=== PATIENT | female | born 1995 | race Hispanic/Latino ===

== ENCOUNTER 2024-12-12 14:22 | Inpatient (IN) | payer OTHER, SELFPAY ==
[2024-12-12] VITALS (15 sets, daily range): BP systolic 149–179; BP diastolic 96–124; BMI 18.3; BMI 18.0
--- NOTE | 2024-12-12 10:38 | ED.GENMED ---
History of Present Illness
General
Chief Complaint: Withdrawal Symptoms
Source: patient
Exam Limitations: none
Time Seen by Provider: 12/12/24 10:27
History of Present Illness
History of Present Illness:
29-year-old female presents from [facility] with complaints of vomiting chest and back pain. She was arrested yesterday. She is used to smoking 2 bundles of cocaine and fentanyl daily. She states she may be withdrawing.
She was given clonidine Tylenol and Zofran at the facility without relief. Patient a limited historian and only answer some of the questions. States she is homeless. No other complaints at this time. She denies alcohol use
Phy Exam
Physical Exam
Physical Exam:
General: Well-developed female no acute respiratory distress
HEENT: Normocephalic mucosa dry feels equal round reactive to light
Heart: Tachycardic but regular
Lungs: Clear no wheeze
Extremities: No cyanosis or edema
Skin warm no rash
Course
Orders/Labs/Results
Orders:
Orders
12/12/24 10:27
EKG [Electrocardiogram (*1)] Urgent
Reason for Study: Tachycardia
EKG- Treatment ONCE
12/12/24 10:36
0.9% Sodium Chloride 1000 ml [Nss] 1,000 ml IV BOLUS
Test Result ONCE
12/12/24 10:39
Complete Blood Count/With Diff Urgent
Comprehensive Metabolic Panel Urgent
HCG, Serum Qualitative Screen Urgent
Troponin I Urgent
12/12/24 10:40
CR Chest Portable - 1 View Urgent
Comment:
Reason For Exam: chest pain
Reason Study Needs to be Portable: Patient Unstable
12/12/24 11:01
Ondansetron Injectable [Zofran] 4 mg IV NOW STA
12/12/24 11:35
Aspirin 325 mg PO NOW STA
Abnormal Lab Results
12/12/24
10:39
WBC 24.0 H 10^3/uL
(4.8-10.8)
RBC 6.18 H 10^6/uL
(4.20-5.40)
Hgb 18.3 H g/dL
(12.0-16.0)
Hct 54.4 H %
(37.0-47.0)
Abs Immat Gran (auto) 0.2 H 10^3/uL
(0-0.05)
Absolute Neuts (auto) 19.0 H 10^3/uL
(1.4-6.5)
Absolute Lymphs (auto) 3.8 H 10^3/uL
(1.2-3.4)
Absolute Monos (auto) 1.0 H 10^3/uL
(0.1-0.6)
Immature Gran % 0.7 H %
(0-0.5)
Neutrophils % 79.3 H %
(42.2-75.2)
Lymphocytes % 15.7 L %
(20.5-51.1)
BUN 26 H mg/dl
(7-17)
Creatinine 1.1 H mg/dL
(0.6-1.0)
Glucose 178 H mg/dl
(70-99)
Troponin I 0.333 H* ng/ml
12/12/24 10:39
12/12/24 10:39
Vital Signs
Initial and Last Documented VS:
Initial Vital Signs
Temp Pulse Resp BP Pulse Ox
99.1 F 128 26 159/118 96
12/12/24 10:28 12/12/24 10:28 12/12/24 10:28 12/12/24 10:28 12/12/24 10:28
Last Documented Vital Signs
Temp Pulse Resp BP Pulse Ox
98.5 F 115 25 159/118 96
12/12/24 10:51 12/12/24 10:28 12/12/24 10:28 12/12/24 10:28 12/12/24 10:40
MDM/Problems Addressed
Differential Diagnosis Includes:
Patient with vomiting and chest pain since being incarcerated yesterday. Prior to that she was smoking 2 bundles of cocaine and fentanyl daily.
Differential could include withdrawal from fentanyl chest pain from cocaine use versus AL
EKG troponin labs pending. Will hydrate.
*Pulse Oximetry
SaO2: 96
Oxygen Mode of Delivery: Room air
Patient hypoxic: no
*Critical Care Note
Total Time (30-74mins, 75-104mins- exclusive of procedures): Not Applicable
Update Note
Update Note:
EKG shows sinus tachycardia with a rate of 129 no ischemic changes
Troponin is elevated at 0.333. Patient required Zofran here for her nausea and vomiting. Aspirin ordered for chest pain and elevated troponin. Troponin possibly elevated secondary to recent cocaine use will admit to hospital for further trending
of troponin and evaluation. Discussed with the emergency room attending
ED Attending Note
-
Portions of this chart may have been created with voice recognition software.� Occasional wrong word or��sound alike� substitutions may have occurred due to the inherent limitations of voice recognition software.
Discharge Plan
Departure
Patient Disposition: Admit
Date of Disposition: 12/12/24
Time of Disposition: 11:45
Presentation/result/management discussed w/ accepting MD/DO: Hospitalist
Discharge Problem:
Chest pain, Elevated troponin
Prescriptions:
No Action
clonidine HCl 0.1 mg Tablet
0.1 mg PO DIRECTED
Rx Instructions:
take 0.1mg tid until 12/14/24 then 12/15/24 take 0.1mg bid until 12/16/24 then on 12/17/24 take half a tablet bid until 12/18/24
ondansetron HCl [Zofran] 4 mg Tablet
4 mg PO TIDPRN PRN (Reason: nausea)
loperamide 2 mg Tablet
2 mg PO TIDPRN PRN (Reason: diarrhea)
acetaminophen-codeine 300-30 mg Tablet
1 tab PO DIRECTED
Rx Instructions:
take 2 tablet tid until 12/14/24 then on 12/15/24 take 2 tablet bid until 12/16/24 then on 12/17/24 1 tablet bid until 12/18/24 then on 12/19/24 1 tablet hs
Referrals:
[facility] [Family Provider, General]
Interventions
Interventions:
*Risk Screen - Suicide Last Done: 12/12/24 10:28
*General Assessment Last Done: 12/12/24 10:28
*Neglect/Abuse Screening Last Done: 12/12/24 10:28
Discharge Date and Time
Print Language: AZERI
[2024-12-12] MEDS: NSS 1000 IV ×2 (10:41→14:38)
[2024-12-12] MEDS: ZOFRAN 4 MG IV ×2 (11:05→22:05)
[2024-12-12 11:22] LABS: HCG, Serum Qualitative Screen Negative
[2024-12-12 11:23] LABS: % Basophils 0.2 % (0-2); % Immature Granulocytes 0.7 % (0-0.5); % Lymphocytes 15.7 % (20.5-51.1); % Monocytes 4.1 % (1.7-9.3); % Neutrophils 79.3 % (42.2-75.2); Absolute Basophils 0.1 10^3/uL (0-0.2); Absolute Immature Granulocytes 0.2 10^3/uL (0-0.05); Absolute Lymphocytes 3.8 10^3/uL (1.2-3.4); Hematocrit 54.4 % (37.0-47.0); Hemoglobin 18.3 g/dL (12.0-16.0); Mean Corp Hgb Conc. 33.6 g/dL (33.0-37.0); Mean Corpuscular Hgb 29.6 pg (27.0-31.0); Mean Platelet Volume 8.6 fL (7.4-10.4); Nucleated Red Blood Cells % 0 %; Platelet Count 390 10^3/uL (130-400); Red Blood Cell Count 6.18 10^6/uL (4.20-5.40)
[2024-12-12 11:31] LABS: ALT (SGPT) 12 U/L (0-35); AST (SGOT) 20 U/L (14-36); Albumin 4.1 g/dl (3.5-5.0); Alkaline Phosphatase 91 U/L (38-126); Blood Urea Nitrogen 26 mg/dl (7-17); Calcium 10.1 mg/dl (8.4-10.2); Carbon Dioxide 25 mmol/L (22-30); Chloride 103 mmol/L (98-107); Estimated Creatinine Clearance 60 ml/min; Glucose 178 mg/dl (70-99); Potassium 4.1 mmol/L (3.5-5.1); Sodium 136 mmol/L (135-145); Total Bilirubin 0.5 mg/dl (0.2-1.3); eGFR > 60.00
[2024-12-12 11:32] LABS: Troponin I 0.333 ng/ml
[2024-12-12] MEDS: ASPIRIN 325 MG PO (11:49)
--- NOTE | 2024-12-12 13:59 | HPS.HSE ---
Addendum entered and electronically signed by Rian Perez MD 12/12/24 14:56:
Discussed with pharmacy, will start Microdosing protocol
Original Note:
Family Physician
-
Family Physician: Facility [facility]
Chief Complaint
-
Chest pain, back pain
History of Present Illness
29-year-old female with history of drug use came from [facility] facility with nausea/vomiting along with chest and back pain. Per staff at bedside patient was arrested yesterday. Per staff when patient came yesterday, she
appeared to be withdrawing which continue to get worse. Patient does cocaine and fentanyl. At the facility clonidine Tylenol and Zofran was tried without any relief. Patient is also poor historian and does not answer all the questions. Currently
she denies any shortness of breath. Denies any alcohol use.
Medical History
Past Medical History
Past Medical History: Reports Other (drug use)
Past Surgical History: Reports None
Social History
Unable to obtain full social history at this time due to: Other
Tobacco: Non-smoker
Alcohol: None
Drug: Cocaine
Family History
Family History: Not pertinent
Allergies / Home Medications
Allergies reflects when Allergies were last updated in [employer].
Home Medications with original date entered in [employer]
Allergy/Medication List:
Allergies
Allergy/AdvReac Type Severity Reaction Status Date / Time
No Known Allergies Allergy Unverified 12/12/24 10:25
Home Medications
acetaminophen 300 mg-codeine 30 mg tablet 1 tab PO DIRECTED 12/12/24
clonidine HCl 0.1 mg tablet 0.1 mg PO DIRECTED 12/12/24
loperamide 2 mg tablet 2 mg PO TIDPRN PRN diarrhea 12/12/24
ondansetron HCl 4 mg tablet 4 mg PO TIDPRN PRN nausea 12/12/24
Review of Systems
-
Unable to obtain full review of systems at this time due to: Acuity
History Source: Patient
A 12 point ROS was completed and negative except as noted: Yes
Cardiac: Reports Chest Pain
Abdomen/GI: Reports Nausea and Vomiting
Physical Exam
Vital Signs
Vital Signs
Temp Pulse Resp BP Pulse Ox
98.6 F 141 19 150/107 99
12/12/24 12:00 12/12/24 12:33 12/12/24 12:33 12/12/24 12:33 12/12/24 11:00
Physical Exam
General: Appears in Distress and Pain
HEENT: Anicteric and Moist mucous membranes
Respiratory: Clear; No Wheezes
Cardiac: S1/S2, Regular Rhythm and Tachycardia
Breast: Deferred by me
GI: Soft, Non Distended and Tender
Rectal: Deferred by Provider
Genito-urinary: Deferred by me
Musculoskeletal: No Edema
Neuro: Awake
Psych: Agitated
Laboratory Results
-
12/12/24 10:39
12/12/24 10:39
Laboratory Results
Total Bilirubin 0.5 mg/dl (0.2-1.3) 12/12/24 10:39
AST 20 U/L (14-36) 12/12/24 10:39
ALT 12 U/L (0-35) 12/12/24 10:39
Alkaline Phosphatase 91 U/L (38-126) 12/12/24 10:39
Troponin I 0.333 ng/ml H* 12/12/24 10:39
Data Reviewed
-
Lab Data: Labs Reviewed by me and Discussed with Patient
Impression/Plan
-
Chest pain, could be secondary to cocaine induced vasospasm
Trend troponin, aspirin for now
If troponin continues to rise then start IV heparin
Cardiology evaluation
Check echo
EKG with sinus tach with occasional PVC
Suspect severe opioid withdrawal
Start Subutex
Clonidine as needed
COWS protocol
N/V suspect 2/2 withdrawal
antiemetics
clears for now
Renal insufficiency, unknown baseline
Continue to monitor
Leukocytosis and elevated hemoglobin suspect likely secondary to dehydration
Continue to monitor
Denies any fever/chills
SIRS (leukocytosis, tachycardia, tachypnea)
check bcx
monitor off abx for now
if spike fever then start abx
DVTppx
SCD's, lovenox
Full code
I spent a total of 77 minutes with the patient or on the floor. More than 50% of this time involved counseling and coordination of care.
--- NOTE | 2024-12-12 14:13 | CM ---
Received consult, reviewed chart. Pt will return to [facility] upon discharge. CM will continue to follow.
[2024-12-12] MEDS: CATAPRES 0.1 MG PO ×4 (14:38→23:36)
--- NOTE | 2024-12-12 15:09 | CON.CAR ---
Addendum entered and electronically signed by Robert Hoang MD 12/12/24 16:06:
I saw and examined the patient.
The MATERIAL EXPEDITER's note was reviewed and I agree with the note.
Comment: 29 y/o female with fentanyl and cocaine use who is in [facility] after recent arrest (yesterday per chart) is here for evaluation of nausea, vomiting, and chest and back pain. We are consulted since troponin is 0.333.
Her troponin is most consistent with non-ischemic myocardial injury given drug use, HTN, tachycardia, and withdrawal symptoms.
Treat underlying cause.
Plan for possible outpatient stress test once discharged.
Troponin peaked at 0.33.
Original Note:
Consultation
Consultation Request
Date/Time Consultation Requested: 12/12/24 [id number]
Date/Time Consultation Performed: 12/12/24 [id number]
Requesting Provider: Dr. Perez
Performing Provider: Savannah VILLEDA for Dr. Hoang
Reason for Consultation: Chest pain, abnormal troponin
Medical History
-
Chief Complaint: nausea, vomiting, chest/back discomfort
History of Present Illness:
29 y/o female with fentanyl and cocaine use who is in [facility] after recent arrest (yesterday per chart) is here for evaluation of nausea, vomiting, and chest and back pain. We are consulted since troponin is 0.333. She
reports continued chest pain. There was some vomiting on arrival to the IMU. Overall, she does not seem to be a reliable historian at this time and is only answering some questions. She is in no distress at the time of my assessment.
Past Medical History
Past Medical History: Other (as above)
Social History
Drug: Cocaine and Other (fentanyl)
Living: Senior Living
Family History
Family History: Reviewed & Not Pertinent
Allergies / Home Medications
Allergy/AdvReac Type Severity Reaction Status Date / Time
No Known Allergies Allergy Unverified 12/12/24 10:25
�Medication �Instructions �Recorded �Confirmed �Type
acetaminophen 300 mg-codeine 30 mg 1 tab PO DIRECTED 12/12/24 12/12/24 History
tablet
clonidine HCl 0.1 mg tablet 0.1 mg PO DIRECTED 12/12/24 12/12/24 History
loperamide 2 mg tablet 2 mg PO TIDPRN PRN diarrhea 12/12/24 12/12/24 History
ondansetron HCl 4 mg tablet 4 mg PO TIDPRN PRN nausea 12/12/24 12/12/24 History
Review of Systems
-
History Source: Patient and Other (and chart)
Cardiac: Chest Pain
Abdomen/GI: Nausea and Vomiting
Musculoskeletal: Other (back pain)
Physical Exam
Vital Signs
Temp Pulse Resp BP Pulse Ox
98.6 F 141 19 150/107 99
12/12/24 12:00 12/12/24 12:33 12/12/24 12:33 12/12/24 12:33 12/12/24 11:00
Lab Results
12/12/24 10:39
12/12/24 10:39
Troponin I 0.333 ng/ml H* 12/12/24 10:39
Physical Exam
General: No Apparent Distress
Respiratory: Clear and Non Labored Respirations
Cardiac: Regular Rhythm (tachycardia)
Neuro: Awake, Alert and Other (answering some questions, shutting eyes and being silent to other questions)
Impression / Plan
-
Abnormal troponin:
-ASA administered in ER
-suspect acute, non-ischemic myocardial injury in setting of drug use/withdrawal, elevated BP's, tachycardia
-0.333, and trending down. Obtain echo (prelim EF normal). Repeat EKG in AM.
Chest, back pain, nausea, vomiting:
-likely associated with withdrawal- HR and BP elevated as well in this setting- meds being given per protocol
Drug abuse:
-being treated for withdrawal per primary team
-should have counseling on cessation options prior to d/c
Leukocytosis:
-blood cx are pending
-w/u per primary
Data Reviewed
-
EKG: Tracing Personally Visualized and interpreted (ST 129 BPM)
Radiology: Report Reviewed by me (CXR: no acute disease of chest)
Medical Tests (Nuc Med, Echo etc): Other (echo is ordered)
Labs: Labs Reviewed by me
[2024-12-12 15:10] LABS: Alcohol None Detected
[2024-12-12 15:21] LABS: Troponin I 0.315 ng/ml
[2024-12-12] MEDS: BELBUCA 300 MCG BUCCAL ×3 (15:44→23:37)
[2024-12-12] MEDS: OXYCONTIN (CONTROLLED RELEASE) 40 MG PO ×2 (15:44→23:37)
--- NOTE | 2024-12-12 16:47 | PTCARENOTE ---
recieved pt from ED. upon arrival to floor pt vomited small amount bilious fluid. heart rate 140, pt flushed and diaphoretic. 4 pm doses of buprenorphine and oxycodone given at that time. pt seen by cardiology for c/o chest pain. repeat troponin
trending down and order for heparin drip discontinued. pt not copperative in answering admission questions and is withdrawn. COWS score of 18. iv fluids infusing. pt currently sleeping but awakens easily. heart rate down to 110. pulse ox 98 on room
air. as pt is forensic pt gaurds are at bedside.
[2024-12-12] MEDS: LOVENOX 40 MG SC (17:38)
[2024-12-13] VITALS (22 sets, daily range): BP systolic 142–176; BP diastolic 90–121; BMI 17.8
[2024-12-13] MEDS: BELBUCA 300 MCG BUCCAL ×3 (04:09→12:30)
[2024-12-13] MEDS: NSS 1000 IV ×3 (04:09→22:27)
[2024-12-13 04:52] LABS: % Basophils 0.2 % (0-2); % Immature Granulocytes 0.5 % (0-0.5); % Lymphocytes 17.3 % (20.5-51.1); % Monocytes 4.8 % (1.7-9.3); % Neutrophils 77.2 % (42.2-75.2); Absolute Immature Granulocytes 0.1 10^3/uL (0-0.05); Absolute Lymphocytes 3.2 10^3/uL (1.2-3.4); Absolute Monocytes 0.9 10^3/uL (0.1-0.6); Absolute Neutrophils 14.2 10^3/uL (1.4-6.5); Hematocrit 43.8 % (37.0-47.0); Hemoglobin 14.9 g/dL (12.0-16.0); Mean Corpuscular Hgb 29.8 pg (27.0-31.0); Mean Corpuscular Volume 87.6 fL (81.0-99.0); Mean Platelet Volume 8.2 fL (7.4-10.4); Nucleated Red Blood Cells % 0 %; Platelet Count 284 10^3/uL (130-400); White Blood Cell Count 18.4 10^3/uL (4.8-10.8)
[2024-12-13 05:00] LABS: Urine Albumin 2+ (Neg - Trace); Urine Bilirubin Negative (Negative); Urine Character Cloudy (Clear); Urine Color Amber; Urine Glucose Negative (Negative); Urine Ketone 3+ (Negative); Urine Leukocyte 3+ (Negative); Urine Nitrite Positive (Negative); Urine Occult Blood 2+ (Negative); Urine Urobilinogen Negative (Neg - 1+)
[2024-12-13 05:03] LABS: Amphetamines Negative (Negative); Barbiturates Negative (Negative); Benzodiazepines Negative (Negative); Buprenorphine Positive (Negative); Cocaine Positive (Negative); Marijuana Negative (Negative); Methadone Negative (Negative); Methamphetamines Positive (Negative); Opiates Negative (Negative); Phencyclidine Negative (Negative); Tricyclic Antidepressants Negative (Negative)
[2024-12-13 05:21] LABS: Fentanyl, Urine Positive (Negative)
[2024-12-13 05:32] LABS: ALT (SGPT) < 10 U/L (0-35); AST (SGOT) 19 U/L (14-36); Albumin 3.6 g/dl (3.5-5.0); Alkaline Phosphatase 67 U/L (38-126); Blood Urea Nitrogen 24 mg/dl (7-17); Calcium 8.6 mg/dl (8.4-10.2); Carbon Dioxide 23 mmol/L (22-30); Chloride 109 mmol/L (98-107); Direct Bilirubin 0.2 mg/dl (0.0-0.4); Estimated Creatinine Clearance 107 ml/min; Glucose 86 mg/dl (70-99); Potassium 4.2 mmol/L (3.5-5.1); Sodium 137 mmol/L (135-145); Total Bilirubin 0.6 mg/dl (0.2-1.3); Total Protein 6.2 g/dl (6.3-8.2); eGFR > 60.00
[2024-12-13 05:35] LABS: Urine Bacteria Many (Negative); Urine White Cell 16-20 /HPF (0-5)
--- NOTE | 2024-12-13 06:04 | PTCARENOTE ---
Cared for pt overnight. Bp's running high overnight, FL[employer]OR aware, order to give PRN clonidine. Bp's still running high, orders to monitor for now since pt is asymptomatic.
pt drowsy and withdrawn. COWS completed. ST on monitor. remains RA. Denies pain.
[2024-12-13] MEDS: OXYCONTIN (CONTROLLED RELEASE) 40 MG PO ×2 (07:24→16:50)
[2024-12-13] MEDS: ZOFRAN 4 MG IV (07:25)
[2024-12-13] MEDS: LOW STRENGTH ASPIRIN 81 MG PO (07:25)
[2024-12-13] MEDS: CATAPRES 0.1 MG PO ×3 (07:25→21:28)
--- NOTE | 2024-12-13 10:55 | CM ---
Notified [facility] via phone; made aware that medical consultation report was faxed to #[phone]
--- NOTE | 2024-12-13 11:50 | W.PN.CD ---
Today's Communication / Plan
-
Consider nifedipine for HTN most likely will improve with improvement of withdrawal
Outpt workup for elevated trop ie exercise nuc
We will arrange outpt follow up. please call with questions.
Impression / Plan
-
Abnormal troponin:
-ASA administered in ER
-suspect acute, non-ischemic myocardial injury in setting of drug use/withdrawal, elevated BP's, tachycardia
-0.333, and trending down.
- echo below
- can have outpt workup
Chest, back pain, nausea, vomiting:
-likely associated with withdrawal- HR and BP elevated as well in this setting- meds being given per protocol
Drug abuse:
-being treated for withdrawal per primary team
-should have counseling on cessation options prior to d/c
Leukocytosis:
-blood cx are pending
-w/u per primary
Subjective: minimally interactive this AM
Physical Exam
Vital Signs/Labs
Vital Signs
Temp Pulse Resp BP Pulse Ox
99.1 F 90 19 156/103 98
12/13/24 07:30 12/13/24 08:00 12/13/24 08:00 12/13/24 08:00 12/13/24 08:20
12/12/24 12/13/24 12/14/24
06:59 06:59 06:59
Actual Weight 110 lb 7.225 oz
12/13/24 04:20
12/13/24 04:20
APTT Cancelled 12/12/24 15:41
LAB Results
12/12/24 12/12/24 12/12/24
10:39 14:32 18:30
Troponin I 0.333 H* 0.315 H* Cancelled
12/12/24
22:30
Troponin I Cancelled
Physical Exam
Constitutional: No acute distress and Other (tired)
EENT: Anicteric
Cardiovascular: Rhythm & rate is regular and Pedal edema is absent
Respiratory: Respiratory effort normal and Lungs clear to auscul.
GI: Soft
Neuro/Psych: Alert and Oriented
Data Reviewed
-
Date of Service: December 13, 2024
EKG: Tracing Personally Visualized and interpreted (sr)
Echo: Tracing Personally Visualized and interpreted and Report Reviewed by me
Labs: Labs Reviewed by me
--- NOTE | 2024-12-13 13:18 | W.PN.HOSP.TC ---
Today's Communication/Plan
-
Monitor vital signs see plan
Continue with micro dosing protocol
Monitor mental status
Start ceftriaxone for now
Follow cultures
Started nifedipine
Assessment / Plan
Assessment / Plan
General: Appears in Distress and Pain
HEENT: Anicteric and Moist mucous membranes
Respiratory: Clear; No Wheezes
Cardiac: S1/S2, Regular Rhythm and Tachycardia
GI: Soft, Non Distended and Tender
Musculoskeletal: No Edema
Neuro: Awake
Psych: calm
Chest pain, suspect nonischemic myocardial injury
Troponin ordered, continue with aspirin
Cardiology following, discussed with cardiology and they will follow-up with patient outpatient for stress test
Echo 12/12 with preserved EF
EKG with sinus tach with occasional PVC
Suspect severe opioid withdrawal
Continue with micro dosing protocol
Clonidine as needed instead
COWS protocol
Severely hypertensive, start nifedipine
N/V suspect 2/2 withdrawal
antiemetics
clears for now
Renal insufficiency, unknown baseline
Continue to monitor, resolved
Leukocytosis and elevated hemoglobin suspect likely secondary to dehydration
Continue to monitor
Denies any fever/chills
SIRS (leukocytosis, tachycardia, tachypnea)
check bcx pending
monitor off abx for now
if spike fever then start abx
ua noted; could also be a bad sample however given her symptoms we will treat for UTI for now pending urine culture
DVTppx
SCD's, lovenox
Full code
I spent a total of 52 minutes with the patient or on the floor. More than 50% of this time involved counseling and coordination of care.
Anticipated Discharge: > 48 hours
Subjective/Interval History
-
Date of Service: December 13, 2024
no nausea
Objective Data
-
Labs:
Laboratory Results
12/13/24
04:20
WBC 18.4 H
Hgb 14.9
Hct 43.8
Plt Count 284 D
Sodium 137
Potassium 4.2
Chloride 109 H
Carbon Dioxide 23
BUN 24 H
Creatinine 0.5 L
Glucose 86
Calcium 8.6 D
Total Bilirubin 0.6
AST 19
ALT < 10
Alkaline Phosphatase 67
Vital Signs:
Vital Signs
Temp Pulse Resp BP Pulse Ox
99.0 F 90 19 156/103 98
12/13/24 11:30 12/13/24 08:00 12/13/24 08:00 12/13/24 08:00 12/13/24 08:20
--- NOTE | 2024-12-13 13:47 | PN.CDI ---
CDI
- -
CDI:
Physician Documentation Request
Admit Date: 12/12/24 14:22
Dear Doctor Chris,
Please review the following and provide your response in the progress notes.
Clinical Indicators:
Height: 5 ft 6 in
Weight:110lb 7.2 oz
BMI:17.8
Other Clinical Notes: Nutrition consult 12/13@ 1152,' BMI 17.8 (underweight)...'
If possible, please provide an associated diagnosis related to the abnormal BMI, such as:
BMI < or = to 19
Underweight
Cachectic
- Other
Use of terms such as suspected, likely, concern for, or probable (associated with a specific diagnosis that is being evaluated, monitored, or treated as if it exists) are acceptable and can be coded in the inpatient setting, when documented at the
time of discharge.
Thank you,
Alecia Austin RN
CDI Specialist
[place] [facility]
Please use your independent medical judgment in providing your response.
--- NOTE | 2024-12-13 13:50 | PN.CDI ---
CDI
- -
CDI:
Physician Documentation Request
Admit Date: 12/12/24 14:22
Dear Doctor Chris,
Please review the following and provide your response in the progress notes.
Clinical Indicators:
Pt admitted with Opioid withdrawal
Documented per H&P,' N/V suspect 2/2 withdrawal...Renal insufficiency, unknown baseline Continue to monitor..'
Renal Functions as below /Pt did get IVFs
Laboratory Tests
12/12/24 12/13/24
10:39 04:20
Creatinine 1.1 H 0.5 L
Clarify which of the following accurately represents the patient's renal status:
GUILHERME
Abnormal creatinine only
Other ( please specify)
Criteria for GUILHERME*
1 Increase in serum creatinine by > or = to 0.3 mg/dL (> or = to 26.5 micromol/L) within 48 hours, OR
2 Increase in serum creatinine to > or = to 1.5 times baseline, which is known or presumed to have occurred within 7 days, OR
3 Urine volume < 0.5 nL/kg/hour for six hours
Use of terms such as suspected, likely, concern for, or probable (associated with a specific diagnosis that is being evaluated, monitored, or treated as if it exists) are acceptable and can be coded in the inpatient setting, when documented at the
time of discharge.
Thank you,
Alecia Austin RN
CDI Specialist
[place] [facility]
Please use your independent medical judgment in providing your response.
*Source: Kidney Disease: Improving Global Outcomes (KDIGO) 2012
[2024-12-13] MEDS: STERILE WATER FOR INJECTION 10 ML IV (15:00)
[2024-12-13] MEDS: ROCEPHIN 1000 MG IV (15:00)
[2024-12-13] MEDS: PROCARDIA XL (EXTENDED RELEASE) 30 MG PO (15:01)
[2024-12-13] MEDS: LOVENOX SC (16:50)
[2024-12-13] MEDS: SUBUTEX 2 MG SL ×2 (17:22→21:29)
--- NOTE | 2024-12-13 17:44 | PTCARENOTE ---
See nursing flowsheet. pt cow scores not requiring prn meds this shift. pt reports less nausea as day goes on and has not vomited. sinus rythym to sinus tachy on monitor. bps continue to be elevated. procardia adminuistered per order. iv rocephin
given per order. pts urine is vladislav and foul smelling.pt is no longer in custody of [facility] per denita and denita no longer in pts room. bed alarm on. iv fluids infusing. appetite is poor.
--- NOTE | 2024-12-13 19:30 | PTCARENOTE ---
pt is drowsy, but arousable. will wake up and go straight back to sleep. 96-98% on room air. RR=15-25, HR 100-120's. Pt cows =4. Pt states she 'is tired and too weak' to do anything. pt is sleeping w/ call brandt in reach.
[2024-12-13] MEDS: OXYCONTIN (CONTROLLED RELEASE) PO (23:25)
[2024-12-14] VITALS (11 sets, daily range): BP systolic 119–157; BP diastolic 87–108; BMI 17.8
[2024-12-14 04:40] LABS: % Basophils 0.3 % (0-2); % Eosinophils 0.2 % (0-6); % Immature Granulocytes 0.4 % (0-0.5); % Lymphocytes 25.2 % (20.5-51.1); % Neutrophils 66.9 % (42.2-75.2); Absolute Lymphocytes 2.9 10^3/uL (1.2-3.4); Absolute Monocytes 0.8 10^3/uL (0.1-0.6); Absolute Neutrophils 7.6 10^3/uL (1.4-6.5); Hematocrit 41.8 % (37.0-47.0); Hemoglobin 13.9 g/dL (12.0-16.0); Mean Corp Hgb Conc. 33.3 g/dL (33.0-37.0); Mean Corpuscular Hgb 29.8 pg (27.0-31.0); Mean Corpuscular Volume 89.7 fL (81.0-99.0); Mean Platelet Volume 8.2 fL (7.4-10.4); Nucleated Red Blood Cells % 0 %; Platelet Count 222 10^3/uL (130-400); Red Blood Cell Count 4.66 10^6/uL (4.20-5.40); Red Cell Dist. Width 12.9 % (11.5-14.5); White Blood Cell Count 11.4 10^3/uL (4.8-10.8)
[2024-12-14 05:03] LABS: ALT (SGPT) 10 U/L (0-35); AST (SGOT) 19 U/L (14-36); Albumin 3.6 g/dl (3.5-5.0); Alkaline Phosphatase 66 U/L (38-126); Blood Urea Nitrogen 8 mg/dl (7-17); Calcium 8.7 mg/dl (8.4-10.2); Carbon Dioxide 25 mmol/L (22-30); Chloride 109 mmol/L (98-107); Estimated Creatinine Clearance 107 ml/min; Glucose 99 mg/dl (70-99); Potassium 3.9 mmol/L (3.5-5.1); Sodium 138 mmol/L (135-145); Total Bilirubin 0.7 mg/dl (0.2-1.3); Total Protein 6.2 g/dl (6.3-8.2); eGFR > 60.00
[2024-12-14] MEDS: NSS 1000 IV ×2 (07:59→20:34)
[2024-12-14] MEDS: SUBUTEX 2 MG SL ×2 (08:24→13:04)
[2024-12-14] MEDS: LOW STRENGTH ASPIRIN 81 MG PO (08:25)
[2024-12-14] MEDS: CATAPRES 0.1 MG PO ×3 (08:25→20:37)
[2024-12-14] MEDS: OXYCONTIN (CONTROLLED RELEASE) PO (08:32)
[2024-12-14] MEDS: PROCARDIA XL (EXTENDED RELEASE) 30 MG PO (08:32)
--- NOTE | 2024-12-14 09:31 | PTCARENOTE ---
Addendum entered by Marcus Pantoja RN 12/14/24 17:02:
Patient removed wires and unscrewed IV fluids then set off bed alarm and ran to bathroom while demanding to leave. Took shower despite instructions not to. Patient steady on her feet. Patient initially wanting to leave AMA but after discussion, she
decided to stay. CM notified that patient homeless, stays in [place] [facility] and was released by [facility] yesterday and will require assistance upon discharge. CM met with patient. See CM note for update. Patient back on tele monitor and IV fluids
and agreeable to stay. VSS. aware. Will closely monitor.
Original Note:
Patient with no complaints. States feeling better, no nausea. COWS score currently 1. VSS. NSR on monitor. RA, 98%. Patient tolerating CLD. Reports weakness. Patient drowsy but arousable, resting in bed. NSS infusing at 80ml/hr. Bed alarm on for
safety. Will closely monitor.
--- NOTE | 2024-12-14 12:32 | W.PN.HOSP.TC ---
Addendum entered and electronically signed by Rian Perez MD 12/14/24 12:38:
GUILHERME
Underweight
Original Note:
Today's Communication/Plan
-
Monitor vital signs see plan
Monitor closely for withdrawal
Continue with withdrawal protocol
Advance diet to full's
Continue with nifedipine, clonidine
Assessment / Plan
Assessment / Plan
General: Appears in Distress and Pain
HEENT: Anicteric and Moist mucous membranes
Respiratory: Clear; No Wheezes
Cardiac: S1/S2, Regular Rhythm and Tachycardia
GI: Soft, Non Distended and Tender
Musculoskeletal: No Edema
Neuro: Awake
Psych: calm
Chest pain, suspect nonischemic myocardial injury
Troponin ordered, continue with aspirin
Cardiology following, discussed with cardiology and they will follow-up with patient outpatient for stress test
Echo 12/12 with preserved EF
EKG with sinus tach with occasional PVC
Suspect severe opioid withdrawal
Continue with micro dosing protocol
Clonidine as needed instead
COWS protocol
Severely hypertensive, started nifedipine
N/V suspect 2/2 withdrawal
antiemetics
advance to fulls; if tolerates then advance to regular diet
Renal insufficiency, unknown baseline
Continue to monitor, resolved
Leukocytosis and elevated hemoglobin suspect likely secondary to dehydration
Continue to monitor
Denies any fever/chills
SIRS (leukocytosis, tachycardia, tachypnea)
check bcx NGTD
monitor off abx for now
if spike fever then start abx
ua noted; could also be a bad sample however given her symptoms we will treat for UTI for now pending urine culture; urine cx mixed allan. dc further abx
DVTppx
SCD's, lovenox
Full code
Anticipated Discharge: 24 - 48 hours
Subjective/Interval History
-
Date of Service: December 14, 2024
feeling better
Objective Data
-
Labs:
Laboratory Results
12/14/24
04:18
WBC 11.4 H
Hgb 13.9
Hct 41.8
Plt Count 222 D
Sodium 138
Potassium 3.9
Chloride 109 H
Carbon Dioxide 25
BUN 8
Creatinine 0.5 L
Glucose 99
Calcium 8.7
Total Bilirubin 0.7
AST 19
ALT 10
Alkaline Phosphatase 66
Vital Signs:
Vital Signs
Temp Pulse Resp BP Pulse Ox
98.2 F 107 17 147/102 99
12/14/24 08:04 12/14/24 12:00 12/14/24 12:00 12/14/24 12:00 12/14/24 12:00
I&O
12/13/24 12/14/24 12/15/24
06:59 06:59 06:59
Intake Total 2960 / 2960 240 / 240
Balance 2960 / 2960 240 / 240
[2024-12-14] MEDS: OXYCONTIN (CONTROLLED RELEASE) 20 MG PO ×2 (15:17→23:49)
--- NOTE | 2024-12-14 15:31 | CM ---
Addendum entered by Emily Jimenez RN 12/15/24 10:50:
Update for 12/14/24: Received callback from [facility] Delarosa; he was working on getting the patient accepted by [facility] in [place]. He will let CM know tomorrow.
Original Note:
Patient who is homeless with Dx Chest pain, suspect nonischemic myocardial injury, Suspect severe opioid withdrawal. Tox screen noted. Room air. Per nurse; ambulatory in room by self.
Message from nurse Marcus that patient was released from custody of [facility], and reports homelessness.
CM confirmed with Admitting that patient has [facility] Medicaid.
Messages with Dr Perez; receiving oxycodone per microdosing protocol, to be completed tomorrow, then she will need suboxone.
Met with patient who states she has been homeless for a while and has been at the [facility] in [facility] for the past 2 months, located at [facility]. She has no family support. Her grandmother raised her and she .
She had no real contact with her mother who is in [place], and her father lives in the [place]. The patient states no contact with any of her 9 siblings. Veronica states she has 6 children, ages 12, 11, 9, 6, 4 & 2, who are staying with
their father. The patient has no contact with her and cannot go to his home to live. She has no money, saying she has 50 cents in her possession.
Offered [facility] for inpatient drug rehab and patient is receptive to speaking with them however wants to do a program in [facility] to be near her children. She agrees to talk with [facility] by phone.
Spoke with [facility] Delarosa; he will call the patient today, and if she is agreeable will work on a program for her in [facility]. Per [place], patient will need to be off the Oxycontin prior to d/c to a program. He is aware that Oxycontin is being tapered
and Subutex is ordered.
Plan follow up with [facility].
[2024-12-14] MEDS: SUBUTEX 4 MG SL ×2 (17:31→20:37)
[2024-12-14] MEDS: LOVENOX SC (17:31)
[2024-12-15 02:00] VITALS: BP 133/94
[2024-12-15 05:27] LABS: % Basophils 0.4 % (0-2); % Eosinophils 0.5 % (0-6); % Immature Granulocytes 0.1 % (0-0.5); % Lymphocytes 36.2 % (20.5-51.1); % Monocytes 8.3 % (1.7-9.3); % Neutrophils 54.5 % (42.2-75.2); Absolute Lymphocytes 2.9 10^3/uL (1.2-3.4); Absolute Monocytes 0.7 10^3/uL (0.1-0.6); Absolute Neutrophils 4.3 10^3/uL (1.4-6.5); Hematocrit 42.5 % (37.0-47.0); Hemoglobin 14.2 g/dL (12.0-16.0); Mean Corp Hgb Conc. 33.4 g/dL (33.0-37.0); Mean Corpuscular Volume 89.9 fL (81.0-99.0); Mean Platelet Volume 8.1 fL (7.4-10.4); Nucleated Red Blood Cells % 0 %; Platelet Count 216 10^3/uL (130-400); Red Blood Cell Count 4.73 10^6/uL (4.20-5.40); Red Cell Dist. Width 12.7 % (11.5-14.5); White Blood Cell Count 7.9 10^3/uL (4.8-10.8)
[2024-12-15 05:48] LABS: ALT (SGPT) 14 U/L (0-35); AST (SGOT) 23 U/L (14-36); Albumin 4.1 g/dl (3.5-5.0); Alkaline Phosphatase 64 U/L (38-126); Blood Urea Nitrogen 5 mg/dl (7-17); Calcium 9.1 mg/dl (8.4-10.2); Carbon Dioxide 25 mmol/L (22-30); Chloride 108 mmol/L (98-107); Estimated Creatinine Clearance 107 ml/min; Glucose 93 mg/dl (70-99); Potassium 4.3 mmol/L (3.5-5.1); Sodium 140 mmol/L (135-145); Total Bilirubin 0.8 mg/dl (0.2-1.3); Total Protein 6.8 g/dl (6.3-8.2); eGFR > 60.00
[2024-12-15 05:53] VITALS: BMI 16.9
[2024-12-15 06:00] VITALS: BP 157/108
[2024-12-15 08:00] VITALS: BP 160/99
[2024-12-15] MEDS: NSS 1000 IV (08:32)
[2024-12-15] MEDS: SUBUTEX 4 MG SL ×2 (08:33→13:43)
[2024-12-15] MEDS: CATAPRES 0.1 MG PO (08:34)
[2024-12-15] MEDS: OXYCONTIN (CONTROLLED RELEASE) 20 MG PO (08:34)
[2024-12-15] MEDS: LOW STRENGTH ASPIRIN 81 MG PO (08:34)
[2024-12-15] MEDS: PROCARDIA XL (EXTENDED RELEASE) 30 MG PO (08:34)
[2024-12-15] MEDS: NICODERM TRANSDERMAL 7 MG TRANSDERM (08:35)
[2024-12-15 10:00] VITALS: BP 129/94
--- NOTE | 2024-12-15 11:23 | PTCARENOTE ---
Patient told this RN that she was going to leave against medical wishes. She said she is not happy about the locations of the rehab facilities that were presented to her. After administering medications to the patient this AM, patient fell asleep.
BP was high this morning after taking meds BP is now 129/94,74,15,96% RA, afebrile. SR on monitor. Will monitor.
[2024-12-15 12:00] VITALS: BP 131/90
--- NOTE | 2024-12-15 12:02 | W.PN.HOSP.TC ---
Today's Communication/Plan
-
Monitor vitals
See plan
Decrease clonidine to twice daily
Continue with micro dosing protocol while inpatient, likely Suboxone on discharge
Continue nifedipine
Bcares involved
Assessment / Plan
Assessment / Plan
General: Appears in Distress and Pain
HEENT: Anicteric and Moist mucous membranes
Respiratory: Clear; No Wheezes
Cardiac: S1/S2, Regular Rhythm and Tachycardia
GI: Soft, Non Distended and Tender
Musculoskeletal: No Edema
Neuro: Awake
Psych: calm
Chest pain, suspect nonischemic myocardial injury
Troponin noted, continue with aspirin. Suspect nonischemic myocardial injury
Cardiology following, discussed with cardiology and they will follow-up with patient outpatient for stress test
Echo 12/12 with preserved EF
EKG with sinus tach with occasional PVC
Suspect severe opioid withdrawal
Continue with micro dosing protocol
Clonidine as needed instead
COWS protocol
Severely hypertensive, started nifedipine. Now blood pressure appears to be improving. Decrease clonidine to twice daily and keep nifedipine
Now on Subutex
B cares involved, plan for rehab
N/V suspect 2/2 withdrawal
antiemetics
Improving, advance diet to regular
Acute kidney injury
Continue to monitor, resolved
Leukocytosis and elevated hemoglobin suspect likely secondary to dehydration
Continue to monitor
Denies any fever/chills
SIRS (leukocytosis, tachycardia, tachypnea)
check bcx NGTD
monitor off abx for now
if spike fever then start abx
ua noted; could also be a bad sample however given her symptoms we will treat for UTI for now pending urine culture; urine cx mixed allan. dc further abx
Underweight
DVTppx
SCD's, lovenox
Full code
Anticipated Discharge: Today
Subjective/Interval History
-
Date of Service: December 15, 2024
Denies nausea
Objective Data
-
Labs:
Laboratory Results
12/15/24
05:00
WBC 7.9
Hgb 14.2
Hct 42.5
Plt Count 216
Sodium 140
Potassium 4.3
Chloride 108 H
Carbon Dioxide 25
BUN 5 L
Creatinine 0.5 L
Glucose 93
Calcium 9.1
Total Bilirubin 0.8
AST 23
ALT 14
Alkaline Phosphatase 64
Vital Signs:
Vital Signs
Temp Pulse Resp BP Pulse Ox
98.8 F 74 15 129/94 98
12/15/24 07:05 12/15/24 10:00 12/15/24 10:00 12/15/24 10:00 12/15/24 10:00
I&O
12/14/24 12/15/24 12/16/24
06:59 06:59 06:59
Intake Total 2960 / 2960 480 / 480
Balance 2960 / 2960 480 / 480
[2024-12-15 14:00] VITALS: BP 132/81
--- NOTE | 2024-12-15 15:22 | PTCARENOTE ---
Patient tolerated regular diet for lunch. VS remain stable. Patient drowsy but arousable. Sleeping intermittently throughout the day.
--- NOTE | 2024-12-15 15:30 | CM ---
Chart reviewed and case assistant reached out [facility] and spoke with Bettie who stated that [facility] will be in a 2pm and will review options with patient, and contact case assistant, plan is for inpatient [facility] is being reviewed.
Plan; Drug and Alcohol treatment.
--- NOTE | 2024-12-15 16:06 | PTCARENOTE ---
Patient left hospital AMA. Patient signed AMA paperwork. Dr. Perez and nursing records section supervisor notified.
--- NOTE | 2024-12-16 08:19 | W.DCSUMMARY ---
Discharge Summary
Discharge Data
Date of Admission: 12/12/24
Date of Discharge: 12/15/24
-
Pending Results: No
Hospital Course
Discharge diagnosis:
Chest pain, possible nonischemic myocardial injury
Severe opioid withdrawal
Acute kidney injury
SIRS
Hospital Course:
29-year-old female with history of drug abuse came to the hospital with chest pain and severe opioid withdrawal. For chest pain she was seen by cardiology and had an echocardiogram which showed preserved EF. Cardiology recommended patient to
follow-up outpatient with them for possible stress test. For her opiate withdrawal she was started on microdosing protocol which continue to improve her symptoms. She was also hypertensive and was started on nifedipine along with clonidine. She
also had acute kidney injury which continue to improve over time. She met SIRS criteria on admission however blood cultures continue to be negative and her leukocytosis improved off antibiotics. On 12/15/2024 patient decided to leave AGAINST
MEDICAL ADVICE. Risk of leaving against medical vice was discussed with patient however she still wanted to leave AMA. Patient left AMA on 12/15/2024.
Discharge Plan
-
Patient Disposition: Against Medical Advice
Referrals:
[facility] [Family Provider, [facility]]
Prescriptions:
No Action
clonidine HCl 0.1 mg Tablet
0.1 mg PO DIRECTED
Rx Instructions:
take 0.1mg tid until 12/14/24 then 12/15/24 take 0.1mg bid until 12/16/24 then on 12/17/24 take half a tablet bid until 12/18/24
ondansetron HCl [Zofran] 4 mg Tablet
4 mg PO TIDPRN PRN (Reason: nausea)
loperamide 2 mg Tablet
2 mg PO TIDPRN PRN (Reason: diarrhea)
acetaminophen-codeine 300-30 mg Tablet
1 tab PO DIRECTED
Rx Instructions:
take 2 tablet tid until 12/14/24 then on 12/15/24 take 2 tablet bid until 12/16/24 then on 12/17/24 1 tablet bid until 12/18/24 then on 12/19/24 1 tablet hs
Discharge Date and Time
Discharge Date/Time: 12/15/24 16:48
Print Language: TAIWANESE
== END 2024-12-15 16:48 | disposition left against medical advice (07) | DRG 894 ==
LOC: IMU 14:22
PROVIDERS: Physician Assistant; ADMITTING PHYSICIAN Internal Medicine; CONSULT PHYSICIAN Internal Medicine Cardiovascular Disease; EMERGENCY PHYSICIAN Emergency Medicine
DX: F11.13 Opioid abuse with withdrawal (principal); I5A Non-ischemic myocardial injury (non-traumatic); N17.9 Acute kidney failure, unspecified; R65.10 Systemic inflammatory response syndrome (SIRS) of non-infectious origin without acute organ dysfunction; Z68.1 Body mass index [BMI] 19.9 or less, adult; Z59.00 Homelessness unspecified; F14.93 Cocaine use, unspecified with withdrawal; Z53.29 Procedure and treatment not carried out because of patient's decision for other reasons; I10 Essential (primary) hypertension; I49.3 Ventricular premature depolarization; D72.829 Elevated white blood cell count, unspecified; R63.6 Underweight
CPT/HCPCS: 71045; 80053; 80306; 80307; 81003; 81015; 82077; 82248; 84484; 84703; 85025; 87040; 87086; 93005; 93306; 96361; 96374; 99285